=== PATIENT | male | born 1970 | race Caucasian/White ===

== ENCOUNTER 2023-07-28 00:01 | Inpatient (IN) | payer OTHER, SELFPAY ==
[2023-07-29] MEDS ORDERED: Ondansetron PF 4 MG/2 ML Vial ONE (00:52)
[2023-07-29 01:06] LABS: Base Excess -10.7 mEq/L (-2.0 to +3.0); Calcium, Ionized (venous) 1.14 mmol/L (1.16-1.32); Chloride (VBG) 100 mmol/L (98-106); Hematocrit-VBG 47 % (42.0-52.0); Hemoglobin (Hb) 16.1 g/dL (13.1-17.2); Potassium (VBG) 3.93 mmol/L (3.70-5.30); Sodium 138 mmol/L (133-146); pH (venous) 7.269 (7.32-7.43)
[2023-07-29 01:34] LABS: Anion Gap 23 mmol/L (10-20); BUN (Urea Nitrogen) 18 mg/dL (8.4-25.7); Calc. Creatinine Clearance 0 mL/min (70-130); Calcium 9.2 mg/dL (7.8-10.44); Carbon Dioxide 15 mmol/L (22-29); Chloride 101 mmol/L (98-107); Estimated GFR 74; Glucose 146 mg/dL (70-105); Phosphorus 3.3 mg/dL (2.3-4.7); Potassium 3.9 mmol/L (3.5-5.1); Sodium 135 mmol/L (136-145)
[2023-07-29] MEDS ORDERED: D5 1/2 NS w/20 mEq KCL 1,000 ML ONE ×3 (01:55→10:45)
[2023-07-29 02:16] LABS: Phosphorus 3.7 mg/dL (2.3-4.7)
[2023-07-29] MEDS ORDERED: Electrolyte Replacement Protocol IVPB SCH (02:31)
[2023-07-29] MEDS ORDERED: Dextrose 5 %-0.45 % NaCl 1,000 ML IV PRN (02:31)
[2023-07-29] MEDS ORDERED: NS 0.9% w/ 20 MEQ KCL 1,000 ML IV PRN ×2 (02:31)
[2023-07-29] MEDS ORDERED: Dextrose 50% Abboject 50 ML SYRINGE SLOW IVP PRN ×2 (02:31→13:23)
[2023-07-29] MEDS ORDERED: Sodium Chloride 0.9% 1,000 ML IV PRN ×4 (02:31)
[2023-07-29] MEDS ORDERED: Acetaminophen 325 MG TAB PO PRN (02:31)
[2023-07-29] MEDS ORDERED: HUMULIN R 100 UNITS in Sodium Chloride 0.9% 100 ML IVPB SCH (02:45)
[2023-07-29] MEDS ORDERED: Dextrose 50% Abboject 50 ML SYRINGE ONE (04:33)
[2023-07-29] MEDS ORDERED: Ondansetron PF 4 MG/2 ML Vial IVP PRN (05:00)
[2023-07-29 05:16] VITALS: BMI 29.0
[2023-07-29 05:16] LABS: #Eosinphils 0.1 thou/uL (0.0-0.7); #Monocytes 1.5 thou/uL (0.11-0.59); #Neutrophils 6.2 thou/uL (1.40-6.50); %Basophils 0.3 % (0.0-1.0); %Lymphocytes 25.2 % (21.0-51.0); %Monocytes 13.8 % (0.0-10.0); %Neutrophils 58.6 % (42.0-75.0); Base Excess -9.4 mEq/L (-2.0 to +3.0); Chloride (VBG) 102 mmol/L (98-106); Hematocrit 42.7 % (42.0-52.0); Hematocrit-VBG 44 % (42.0-52.0); Hemoglobin 14.2 g/dL (14.0-18.0); Hemoglobin (Hb) 14.8 g/dL (13.1-17.2); Mean Corpuscular HGB CONC 33.3 g/dL (32.0-36.0); Mean Corpuscular Hemoglobin 29.9 pg (27.0-31.0); Mean Corpuscular Volume 89.9 fl (78.0-98.0); Mean Platelet Volume 10.4 fL (7.4-10.4); Platelet Count 274 10x3/uL (130-400); Potassium (VBG) 3.61 mmol/L (3.70-5.30); RBC Distribution Width 12.3 % (11.5-14.5); Red Blood Cell (RBC) Count 4.75 mill/uL (4.70-6.10); White Blood Cell (WBC) Count 10.5 10x3/uL (4.8-10.8); pH (venous) 7.363 (7.32-7.43)
[2023-07-29 05:26] LABS: Hemoglobin A1c 12.7 % (4.0-6.0)
[2023-07-29 05:57] LABS: Anion Gap 15 mmol/L (10-20); BUN (Urea Nitrogen) 15 mg/dL (8.4-25.7); Calc. Creatinine Clearance 109 mL/min (70-130); Calcium 8.5 mg/dL (7.8-10.44); Carbon Dioxide 17 mmol/L (22-29); Chloride 104 mmol/L (98-107); Estimated GFR 93; Glucose 161 mg/dL (70-105); Potassium 3.7 mmol/L (3.5-5.1); Sodium 132 mmol/L (136-145)
[2023-07-29] MEDS ORDERED: Famotidine 20 MG TAB ONE (07:58)
[2023-07-29] MEDS ORDERED: Enoxaparin 40 MG (0.4 mL) SYRINGE ONE (07:59)
[2023-07-29] MEDS ORDERED: Magnesium 2 GM/50 ML BAG (IN WATER) ONE (08:00)
[2023-07-29] MEDS ORDERED: Magnesium 2 GM/50 ML(in water) 2 GM in Premix 1 BAG IVPB SCH (08:00)
[2023-07-29] MEDS: Enoxaparin 40 MG (0.4 mL) SYRINGE SC SCH (08:08)
[2023-07-29] MEDS: Famotidine 20 MG TAB PO SCH ×2 (08:08→20:21)
[2023-07-29 09:50] LABS: Anion Gap 11 mmol/L (10-20); BUN (Urea Nitrogen) 13 mg/dL (8.4-25.7); Calc. Creatinine Clearance 121 mL/min (70-130); Calcium 8.4 mg/dL (7.8-10.44); Carbon Dioxide 21 mmol/L (22-29); Chloride 104 mmol/L (98-107); Estimated GFR 102; Glucose 167 mg/dL (70-105); Lipase 19 U/L (8-78); Potassium 3.8 mmol/L (3.5-5.1); Sodium 132 mmol/L (136-145)
[2023-07-29] MEDS ORDERED: NS 0.9% w/ 20 MEQ KCL 0 ML ONE (10:41)
[2023-07-29] MEDS: D5 1/2 NS w/20 mEq KCL 1,000 ML IV PRN ×2 (10:50→12:19)
[2023-07-29] MEDS ORDERED: Sodium Chloride 0.9% 1,000 ML IV SCH (11:00)
[2023-07-29] MEDS ORDERED: Dextrose 5% in Water 1,000 ML IV PRN (13:23)
[2023-07-29] MEDS ORDERED: Glucagon 1 MG/ML KIT IM PRN (13:23)
[2023-07-29 14:03] LABS: Anion Gap 14 mmol/L (10-20); BUN (Urea Nitrogen) 12 mg/dL (8.4-25.7); Calc. Creatinine Clearance 108 mL/min (70-130); Calcium 8.3 mg/dL (7.8-10.44); Carbon Dioxide 17 mmol/L (22-29); Chloride 104 mmol/L (98-107); Estimated GFR 92; Glucose 249 mg/dL (70-105); Potassium 3.8 mmol/L (3.5-5.1); Sodium 131 mmol/L (136-145)
[2023-07-29] MEDS ORDERED: FLU VACC QS2023-24(6MOS UP)/PF 60 MCG/0.5 ML SYRINGE IM ONE (15:30)
[2023-07-29] MEDS: HumaLOG 300 UNITS/3 ML VIAL SC PRN (17:08)
[2023-07-29] MEDS: Senokot S 8.6-50 MG TAB PO SCH (20:21)
[2023-07-29] MEDS: Simvastatin 10 MG TAB PO SCH (20:21)
[2023-07-29] MEDS ORDERED: Insulin Glargine 30 UNITS/0.3 ML VIAL SC SCH (21:00)
[2023-07-30] MEDS: Senokot S 8.6-50 MG TAB PO SCH ×2 (08:12→21:00)
[2023-07-30] MEDS: Famotidine 20 MG TAB PO SCH ×2 (08:12→21:00)
[2023-07-30] MEDS: Polyethylene Glycol 3350 17 GM Packet PO SCH (08:12)
[2023-07-30] MEDS: Enoxaparin 40 MG (0.4 mL) SYRINGE SC SCH (08:12)
[2023-07-30 09:51] LABS: #Eosinphils 0.3 thou/uL (0.0-0.7); #Monocytes 0.9 thou/uL (0.11-0.59); #Neutrophils 2.8 thou/uL (1.40-6.50); %Basophils 0.7 % (0.0-1.0); %Eosinophils 4.9 % (0.0-10.0); %Lymphocytes 31.2 % (21.0-51.0); %Monocytes 14.4 % (0.0-10.0); %Neutrophils 47.5 % (42.0-75.0); Hematocrit 41.1 % (42.0-52.0); Hemoglobin 13.9 g/dL (14.0-18.0); Mean Corpuscular HGB CONC 33.8 g/dL (32.0-36.0); Mean Corpuscular Hemoglobin 30.7 pg (27.0-31.0); Mean Corpuscular Volume 90.7 fl (78.0-98.0); Mean Platelet Volume 10.6 fL (7.4-10.4); Platelet Count 247 10x3/uL (130-400); RBC Distribution Width 12.5 % (11.5-14.5); Red Blood Cell (RBC) Count 4.53 mill/uL (4.70-6.10)
[2023-07-30 10:16] LABS: Anion Gap 13 mmol/L (10-20); BUN (Urea Nitrogen) 11 mg/dL (8.4-25.7); Calc. Creatinine Clearance 118 mL/min (70-130); Calcium 8.8 mg/dL (7.8-10.44); Carbon Dioxide 21 mmol/L (22-29); Chloride 106 mmol/L (98-107); Estimated GFR 101; Glucose 297 mg/dL (70-105); Magnesium 2.2 mg/dL (1.6-2.6); Sodium 136 mmol/L (136-145)
[2023-07-30] MEDS: HumaLOG 300 UNITS/3 ML VIAL SC PRN (13:29)
[2023-07-30] MEDS: Simvastatin 10 MG TAB PO SCH (21:00)
[2023-07-30] MEDS ORDERED: Atorvastatin Calcium 20 MG TAB PO SCH (21:00)
[2023-07-30] MEDS ORDERED: Insulin Glargine 30 UNITS/0.3 ML VIAL SC SCH (21:00)
[2023-07-31] MEDS: HumaLOG 300 UNITS/3 ML VIAL SC PRN (06:11)
[2023-07-31 07:38] VITALS: BP 124/82; TEMP 98.3
[2023-07-31] MEDS: Famotidine 20 MG TAB PO SCH (08:23)
[2023-07-31] MEDS: Senokot S 8.6-50 MG TAB PO SCH (08:23)
[2023-07-31] MEDS: Enoxaparin 40 MG (0.4 mL) SYRINGE SC SCH (08:24)
[2023-07-31] MEDS: Polyethylene Glycol 3350 17 GM Packet PO SCH (08:25)
[2023-07-31 10:29] LABS: #Eosinphils 0.3 thou/uL (0.0-0.7); #Monocytes 0.9 thou/uL (0.11-0.59); #Neutrophils 2.9 thou/uL (1.40-6.50); %Basophils 0.5 % (0.0-1.0); %Eosinophils 4.8 % (0.0-10.0); %Lymphocytes 28.9 % (21.0-51.0); %Monocytes 15.6 % (0.0-10.0); %Neutrophils 49.4 % (42.0-75.0); Hematocrit 42.5 % (42.0-52.0); Hemoglobin 14.1 g/dL (14.0-18.0); Mean Corpuscular HGB CONC 33.2 g/dL (32.0-36.0); Mean Corpuscular Hemoglobin 29.9 pg (27.0-31.0); Mean Platelet Volume 10.4 fL (7.4-10.4); Platelet Count 260 10x3/uL (130-400); RBC Distribution Width 12.4 % (11.5-14.5); Red Blood Cell (RBC) Count 4.72 mill/uL (4.70-6.10); White Blood Cell (WBC) Count 5.9 10x3/uL (4.8-10.8)
[2023-07-31 10:54] LABS: ALT (SGPT) 18 U/L (8-55); AST (SGOT) 14 U/L (5-34); Albumin 4.4 g/dL (3.5-5.0); Alkaline Phosphatase 95 U/L (40-110); Anion Gap 15 mmol/L (10-20); BUN (Urea Nitrogen) 15 mg/dL (8.4-25.7); Bilirubin, Total 0.3 mg/dL (0.2-1.2); Calc. Creatinine Clearance 131 mL/min (70-130); Carbon Dioxide 23 mmol/L (22-29); Chloride 105 mmol/L (98-107); Estimated GFR 105; Globulin 3.2 g/dL (2.4-3.5); Glucose 185 mg/dL (70-105); Protein, Total 7.6 g/dL (6.0-8.3); Sodium 139 mmol/L (136-145)
[2023-07-31] MEDS ORDERED: metFORMIN 500 MG TAB PO SCH ×2 (11:00→17:00)
[2023-07-31] MEDS ORDERED: Insulin Glargine 30 UNITS/0.3 ML VIAL SC SCH ×2 (11:00→21:00)
== END 2023-07-31 17:51 | disposition home or self-care (01) | DRG 638 ==
LOC: ERS 00:01 → ERHOLD 07-29 02:34 → CCU 07-29 14:08 → T4-B 07-29 15:40
PROVIDERS: ADMIT Internal Medicine; ATTEND Internal Medicine
PROC: 4A133R1 Monitoring of Arterial Saturation, Peripheral, Percutaneous Approach (ICD-10-PCS; principal; 2023-07-29)
DX: E11.10 Type 2 diabetes mellitus with ketoacidosis without coma (principal); E87.1 Hypo-osmolality and hyponatremia; N17.9 Acute kidney failure, unspecified; E78.5 Hyperlipidemia, unspecified; F32.A Depression, unspecified; F41.9 Anxiety disorder, unspecified; E86.1 Hypovolemia; Z98.890 Other specified postprocedural states; Z83.3 Family history of diabetes mellitus
CPT/HCPCS: 36415; 36416; 80048; 80053; 82010; 82805; 83036; 83690; 83735; 84100; 85025; J1650; J1815; J2405; J3475; J3480; J7050; J7999